=== PATIENT | male | born 1950 | race Caucasian/White ===

== ENCOUNTER 2020-06-30 13:53 | Outpatient (RCR) | payer MEDICARE, OTHER ==
[2020-09-15] MEDS ORDERED: VITA-189 PO (15:45)
[2020-09-15] MEDS ORDERED: ALPR0.254 PO (15:45)
[2020-09-15] MEDS ORDERED: AMLO-251 PO (15:45)
[2020-09-15] MEDS ORDERED: COLE625T14 PO (15:45)
[2020-09-15] MEDS ORDERED: CARV6.252 PO (15:45)
[2020-09-15] MEDS ORDERED: GABA300C PO (15:46)
[2020-09-15] MEDS ORDERED: ZINC50TA58 PO (15:46)
[2020-09-15] MEDS ORDERED: CNC1KV IM (15:46)
[2020-09-15] MEDS ORDERED: HYDR25TA4 PO (15:46)
[2020-09-15] MEDS ORDERED: [UNRECOGNIZED DRUG - OTHER] PO (15:46)
[2020-09-15] MEDS ORDERED: [UNRECOGNIZED DRUG - OTHER] PO (15:46)
[2020-09-15] MEDS ORDERED: CHOL500044 PO (15:46)
[2020-09-15] MEDS ORDERED: CETI10TA49 PO (15:46)
[2020-09-15] MEDS ORDERED: VIT-10 PO (15:46)
[2020-09-15] MEDS ORDERED: HYDRANGEA PO (15:46)
[2020-09-15] MEDS ORDERED: FLUT50DI IH (15:46)
[2020-09-15] MEDS ORDERED: BUPR150T9 PO (15:46)
[2020-09-15] MEDS ORDERED: MULT-1056 PO (15:46)
[2020-09-15] MEDS ORDERED: MELO15TA39 PO (15:46)
[2020-09-15] MEDS ORDERED: VEDO300V IV (15:46)
[2020-09-15] MEDS ORDERED: VITA100035 PO (15:46)
[2020-09-15] MEDS ORDERED: OMEP20CA18 PO (15:46)
[2020-09-15] MEDS ORDERED: OMEG100032 PO (15:46)
[2020-09-15] MEDS ORDERED: TRAM50TA3 PO (15:46)
[2020-09-22] MEDS ORDERED: CIPR-226 PO (10:06)
[2020-09-22] MEDS ORDERED: ACET1TAB43 PO (10:06)
== END 2020-09-27 09:15 | disposition home or self-care (01) ==
LOC: ONC 13:53
PROVIDERS: ATTEND Radiology Radiation Oncology
DX: C61 Malignant neoplasm of prostate (principal); I10 Essential (primary) hypertension; Z80.0 Family history of malignant neoplasm of digestive organs; Z85.841 Personal history of malignant neoplasm of brain; Z87.891 Personal history of nicotine dependence
CPT/HCPCS: 76873; G0463; 99205

== ENCOUNTER 2020-09-15 06:22 | Outpatient (RCR) | payer MEDICARE, OTHER ==
[~2020-09-15] VITALS: Ht 177.8 cm; Wt 126.4 kg
[2020-09-15] MEDS ORDERED: AMLO-251 PO (15:45)
[2020-09-15] MEDS ORDERED: COLE625T14 PO (15:45)
[2020-09-15] MEDS ORDERED: VITA-189 PO (15:45)
[2020-09-15] MEDS ORDERED: CARV6.252 PO (15:45)
[2020-09-15] MEDS ORDERED: ALPR0.254 PO (15:45)
[2020-09-15] MEDS ORDERED: ZINC50TA58 PO (15:46)
[2020-09-15] MEDS ORDERED: VIT-10 PO (15:46)
[2020-09-15] MEDS ORDERED: MULT-1056 PO (15:46)
[2020-09-15] MEDS ORDERED: [UNRECOGNIZED DRUG - OTHER] PO (15:46)
[2020-09-15] MEDS ORDERED: VITA100035 PO (15:46)
[2020-09-15] MEDS ORDERED: BUPR150T9 PO (15:46)
[2020-09-15] MEDS ORDERED: HYDRANGEA PO (15:46)
[2020-09-15] MEDS ORDERED: [UNRECOGNIZED DRUG - OTHER] PO (15:46)
[2020-09-15] MEDS ORDERED: CHOL500044 PO (15:46)
[2020-09-15] MEDS ORDERED: FLUT50DI IH (15:46)
[2020-09-15] MEDS ORDERED: VEDO300V IV (15:46)
[2020-09-15] MEDS ORDERED: MELO15TA39 PO (15:46)
[2020-09-15] MEDS ORDERED: HYDR25TA4 PO (15:46)
[2020-09-15] MEDS ORDERED: TRAM50TA3 PO (15:46)
[2020-09-15] MEDS ORDERED: OMEG100032 PO (15:46)
[2020-09-15] MEDS ORDERED: OMEP20CA18 PO (15:46)
[2020-09-15] MEDS ORDERED: CNC1KV IM (15:46)
[2020-09-15] MEDS ORDERED: GABA300C PO (15:46)
[2020-09-15] MEDS ORDERED: CETI10TA49 PO (15:46)
== END 2020-09-20 10:17 | disposition home or self-care (01) ==
LOC: PREOP 06:22
PROVIDERS: ATTEND Radiology Radiation Oncology
DX: Z01.818 Encounter for other preprocedural examination (principal)

== ENCOUNTER 2020-09-22 09:14 | Day surgery (SDC) | payer MEDICARE, OTHER ==
[~2020-09-22] VITALS: Ht 177.8 cm; Wt 126.4 kg
[2020-09-22] VITALS (11 sets, daily range): BP systolic 134–156; BP diastolic 62–90
[~2020-09-22 09:14] MED LIST: ALPR0.254 PO; AMLO-251 PO; BUPR150T9 PO; CARV6.252 PO; CETI10TA49 PO; CHOL500044 PO; CNC1KV IM; COLE625T14 PO; FLUT50DI IH; GABA300C PO; HYDR25TA4 PO; HYDRANGEA PO; MELO15TA39 PO; MULT-1056 PO; OMEG100032 PO; OMEP20CA18 PO; TRAM50TA3 PO; VEDO300V IV; VIT-10 PO; VITA-189 PO; VITA100035 PO; ZINC50TA58 PO; [UNRECOGNIZED DRUG - OTHER] PO; [UNRECOGNIZED DRUG - OTHER] PO
[2020-09-22] MEDS ORDERED: LEVOFLOXACIN 500 MG/100 ML IV 100 ML IV ONE (09:30)
--- NOTE | 2020-09-22 10:03 | Progress Note-Pre Operative ---
Pre-Operative Progress Note H&P Reviewed The H&P was reviewed, patient examined and no changes noted. Date Seen by Provider: Sep 22, 2020 Time Seen by Provider: : Date H&P Reviewed: Sep 22, 2020 Time H&P Reviewed: : Pre-Operative Diagnosis: Prostate cancer cT1c, PSA 6.42, [place] 7 (3+4) MP PHILLIPS MD Sep 22, 2020 10:03
[2020-09-22] MEDS ORDERED: ACET1TAB43 PO (10:06)
[2020-09-22] MEDS ORDERED: CIPR-226 PO (10:06)
--- NOTE | 2020-09-22 10:09 | Discharge Inst-Simple/Standard ---
Discharge Inst-Standard Reconcile Patient Problems Problems Reviewed?: Yes Discharge Medications New, Converted or Re-Newed RX: RX Given to Pt/Family Patient Instructions/Follow Up Plan of Care/Instructions/FU: 1)One month post implant follow up with Dr. Tavares 10/20/20 at 1:50 pm 2)Post implant scan at [facility] 10/21/20 at 10:00 am Activity as Tolerated: Yes Discharge Diet: No Restrictions Other Inst to Patient Educate on yañez cath care. He is scheduled to come to [facility] [place] on Wednesday 09/27 at 9:30 am for catheter removal - per patient request. MP PHILLIPS MD Sep 22, 2020 10:09
[2020-09-22] MEDS ORDERED: LIDOCAINE PF 2% 5 ML (XYLOCAINE) VIAL ONE (10:21)
[2020-09-22] MEDS ORDERED: fentaNYL INJECTION 100 MCG/2 ML AMP ONE (10:21)
[2020-09-22] MEDS ORDERED: ONDANSETRON 4 MG/2 ML (SDV) Z0FRAN ONE (10:21)
[2020-09-22] MEDS ORDERED: proPOfol 200 MG/20 ML (DIPRIVAN) VIAL IV ONE (10:21)
[2020-09-22] MEDS ORDERED: SEVOFLURANE (ULTANE) 15 ML INHAL SOLN ONE (10:21)
[2020-09-22] MEDS ORDERED: MIDAZOLAM 2 MG/2 ML (VERSED) VIAL ONE (10:22)
[2020-09-22] MEDS ORDERED: BACITRACIN OINTMENT 28 GM TUBE ONE (10:23)
[2020-09-22] MEDS: LACTATED RINGERS 1,000 ML IV PRN ×2 (10:53→12:20)
[2020-09-22] MEDS ORDERED: ROCURONIUM 10 MG/ML 5 ML SYRINGE IV ONE (11:48)
[2020-09-22] MEDS ORDERED: MEPERIDINE (DEMEROL) INJ 50 MG/ML IVP ONE (13:00)
[2020-09-22] MEDS ORDERED: ONDANSETRON 4 MG/2 ML (SDV) Z0FRAN IVP PRN (13:00)
[2020-09-22] MEDS ORDERED: fentaNYL INJECTION 100 MCG/2 ML AMP IVP ONE (13:00)
[2020-09-22] MEDS ORDERED: morphine INJ 10 MG/ML 1ML (SYR OR VIAL) IVP ONE (13:00)
--- NOTE | 2020-09-22 13:00 | Progress Note-Post Operative ---
Post-Operative Progess Note Surgeon (s)/Payroll Benefits Administrator (s) Surgeon MP PHILLIPS MD Payroll Benefits Administrator: Mayda MONTALVO MD Pre-Operative Diagnosis Prostate cancer cT1c, PSA 6.42, [place] 7 (3+4) Post-Operative Diagnosis Same as pre-op Procedure & Operative Findings Date of Procedure 09/22/20 Procedure Performed/Findings (1) 100% Cesium 131 permanent prostate seed implant (2) Injection of biodegradable hydrogel prostate-rectal spacer utilizing the SpaceOAR system (3) Cystogram Prostate volume 48.8 cc Anesthesia Type General Estimated Blood Loss Estimated blood loss (mL): Minimal Specimens/Packing Specimens Removed None Packing: N/A MP PHILLIPS MD Sep 22, 2020 13:00
--- NOTE | 2020-09-22 14:18 | Anesthesia-General Post-Op ---
General Patient Condition Mental Status/LOC: Same as Preop Cardiovascular: Satisfactory Nausea/Vomiting: Absent Respiratory: Satisfactory Pain: Controlled Complications: Absent Post Op Complications Complications None Follow Up Care/Instructions Patient Instructions None needed. Anesthesia/Patient Condition Patient Condition Patient is doing well, no complaints, stable vital signs, no apparent adverse anesthesia problems. No complications reported per nursing. ALBERT LEWIS CRNA Sep 22, 2020 14:18
--- NOTE | 2020-09-22 15:35 | Diagnostic Imaging Report ---
INDICATION: Undergoing brachytherapy. TECHNIQUE: Three intraprocedural images of the pelvis. TECHNIQUE: The hospital radiology department provided fluoroscopic imaging in support of an interventional procedure performed by Dr Cisse. A radiologist was not involved in the procedure. Please reference the operating provider's procedure note. FLUOROSCOPY TIME: 13.6 seconds. FINDINGS/ IMPRESSION: Intraprocedure images demonstrate plate and screws transfixing the pubic symphysis. There is note made of a fractured lateral left screw. Radiation seed implants are present superimposed over the expected location of the prostate bed. There is contrast within the urinary bladder. Dictated by: Dictated on workstation # [id number]
== END 2020-09-22 15:30 | disposition home or self-care (01) ==
LOC: SDC 09:14
PROVIDERS: ATTEND Radiology Radiation Oncology
DX: C61 Malignant neoplasm of prostate (principal); I10 Essential (primary) hypertension; F41.9 Anxiety disorder, unspecified; F32.9 Major depressive disorder, single episode, unspecified; M19.90 Unspecified osteoarthritis, unspecified site; D64.9 Anemia, unspecified; G47.33 Obstructive sleep apnea (adult) (pediatric); G89.29 Other chronic pain; K50.90 Crohn's disease, unspecified, without complications; E66.01 Morbid (severe) obesity due to excess calories; Z68.41 Body mass index [BMI] 40.0-44.9, adult; Z79.899 Other long term (current) drug therapy; Z88.8 Allergy status to other drugs, medicaments and biological substances; Z80.0 Family history of malignant neoplasm of digestive organs; Z80.6 Family history of leukemia; Z80.8 Family history of malignant neoplasm of other organs or systems
CPT/HCPCS: 55874; 76000; 76965; 77290; 77318; 77332; 77370; 77470; 77778; 87081; C1715 ×2; C1889; C2643

== ENCOUNTER 2020-10-21 09:42 | Outpatient (RCR) | payer MEDICARE, OTHER ==
[~2020-10-21 09:42] MED LIST changes: +ACET1TAB43 PO; +CIPR-226 PO
== END 2021-01-19 | disposition home or self-care (01) ==
LOC: ONC 09:42
PROVIDERS: ATTEND Radiology Radiation Oncology
DX: C61 Malignant neoplasm of prostate (principal); I10 Essential (primary) hypertension; Z80.0 Family history of malignant neoplasm of digestive organs; Z85.841 Personal history of malignant neoplasm of brain; Z87.891 Personal history of nicotine dependence
CPT/HCPCS: 77290; 77295

== ENCOUNTER 2021-03-24 11:18 | Outpatient (RCR) | payer MEDICARE, OTHER | END 2021-06-22 | disposition home or self-care (01) | LOC: ONC 11:18 | PROVIDERS: ATTEND Radiology Radiation Oncology | DX: C61 Malignant neoplasm of prostate (principal); I10 Essential (primary) hypertension; Z80.0 Family history of malignant neoplasm of digestive organs; Z85.841 Personal history of malignant neoplasm of brain; Z87.891 Personal history of nicotine dependence | CPT/HCPCS: 84153; G0463; 99213 ==

== ENCOUNTER 2021-09-22 09:26 | Outpatient (RCR) | payer MEDICARE, OTHER | END 2021-10-13 | disposition home or self-care (01) | LOC: ONC 09:26 | PROVIDERS: ATTEND Radiology Radiation Oncology | DX: Z45.2 Encounter for adjustment and management of vascular access device (principal); C61 Malignant neoplasm of prostate; I10 Essential (primary) hypertension; Z80.0 Family history of malignant neoplasm of digestive organs; Z85.841 Personal history of malignant neoplasm of brain; Z87.891 Personal history of nicotine dependence | CPT/HCPCS: 84153; G0463; 36415; 99213 ==

== ENCOUNTER 2022-03-16 09:13 | Outpatient (RCR) | payer MEDICARE, OTHER ==
[~2022-03-16 09:13] MED LIST changes: +ACET-11 PO; -ACET1TAB43 PO
== END 2022-04-14 | disposition home or self-care (01) ==
LOC: ONC 09:13
PROVIDERS: ATTEND Radiology Radiation Oncology
DX: Z45.2 Encounter for adjustment and management of vascular access device (principal); C61 Malignant neoplasm of prostate; I10 Essential (primary) hypertension; Z80.0 Family history of malignant neoplasm of digestive organs; Z85.841 Personal history of malignant neoplasm of brain; Z87.891 Personal history of nicotine dependence; Z12.5 Encounter for screening for malignant neoplasm of prostate
CPT/HCPCS: G0103; G0463; 36415; 84153; 99213

== ENCOUNTER 2022-09-13 10:07 | Outpatient (RCR) | payer MEDICARE, OTHER | END 2022-10-13 | disposition home or self-care (01) | LOC: ONC 10:07 | PROVIDERS: ATTEND Radiology Radiation Oncology | DX: Z45.2 Encounter for adjustment and management of vascular access device (principal); C61 Malignant neoplasm of prostate; I10 Essential (primary) hypertension; Z80.0 Family history of malignant neoplasm of digestive organs; Z85.841 Personal history of malignant neoplasm of brain; Z87.891 Personal history of nicotine dependence | CPT/HCPCS: 36415; 84153 ==